=== PATIENT | male | born 1960 | race Caucasian/White ===

== ENCOUNTER → 2024-01-17 07:25 | Outpatient (REF) | payer BC, SELFPAY | LOC: RAD 07:25 | PROVIDERS: ATTENDING PHYSICIAN Physician Assistant; FAMILY PHYSICIAN Family Medicine | DX: M54.50 Low back pain, unspecified (principal) | CPT/HCPCS: 72114 ==

== ENCOUNTER → 2024-04-16 07:32 | Outpatient (REF) | payer BC, SELFPAY | LOC: RAD 07:32 | PROVIDERS: ATTENDING PHYSICIAN Internal Medicine; FAMILY PHYSICIAN Family Medicine | DX: L29.9 Pruritus, unspecified (principal); L28.1 Prurigo nodularis | CPT/HCPCS: 71046 ==

== ENCOUNTER → 2024-06-01 07:06 | Outpatient (REF) | payer BC, SELFPAY | LOC: HWRAD 07:06 | PROVIDERS: ATTENDING PHYSICIAN Family Medicine | DX: R74.8 Abnormal levels of other serum enzymes (principal) | CPT/HCPCS: 76700 ==